=== PATIENT | female | born 1935 | race Caucasian/White ===

== ENCOUNTER 2016-05-18 08:18 | Day surgery (SDC) | payer BC ==
[2016-05-13 14:29] LABS: PARTIAL THROMBO TIME 32.5 SEC (22.5-37.2)
[2016-05-13 14:32] LABS: BUN (BLOOD UREA NITROGEN) 14 MG/DL (6-23); CALCIUM, SERUM 9.2 MG/DL (8.5-10.4); CHLORIDE, SERUM 106 MMOL/L (96-112); CO2 (CARBON DIOXIDE) 32 MMOL/L (24-34); CREATININE 0.76 MG/DL (0.55-1.02); GFR AFRICAN AMERICAN 86 ML/MIN (>=60); GFR NON AFRICAN AMERICAN 74 ML/MIN (>=60); GLUCOSE, SERUM 91 MG/DL (60-99); SODIUM, SERUM 143 MMOL/L (135-148)
[2016-05-13 14:33] LABS: POTASSIUM, SERUM 5.8 MMOL/L (3.5-5.3)
[2016-05-13 18:20] LABS: HEMATOCRIT 37.4 % (36.0-48.0); HEMOGLOBIN 12.3 g/dL (12.0-16.0)
--- NOTE | ~2016-05-18 | OP ---
Record Of Operation [facility] [address] [place]. 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 POSTOPERATIVE DIAGNOSIS: Basal cell carcinoma of the left nasal ala. PROCEDURE PERFORMED: Wide local excision of basal cell carcinoma with full-thickness skin graft. SURGEON: Sebastian Mcclellan M.D. ANESTHESIA: Monitored anesthesia care was utilized. FINDINGS: An 8-10 mm diameter basal cell carcinoma was excised from the left nasal ala. Margins negative per path. A full thickness skin graft about 1.5 x 1 cm was taken from the preauricular region on the left face to close. ESTIMATED BLOOD LOSS: 3 mL. COMPLICATIONS: No complications. INDICATIONS FOR PROCEDURE: An 80-year-old female with a biopsy-proven basal cell carcinoma, left nasal ala. Due to cosmetic considerations and need for pathology, we decided to this in the OR. She was described the risks and benefits of the procedure. She voiced understanding, signed the consent, and the consent was placed on the chart at the time of operation for the procedures described. PROCEDURE: The patient was wheeled to the OR suite and placed on the OR table in supine position. She had an IV in place and an oral airway was placed. She was placed on the OR table in a supine position with her head up and oxygen by nasal cannula was placed, and the oral airway. Propofol was given, and I would inject in the area of the basal carcinoma. I had measured this out, the area that I would excise would be between 8 and 10 mm excision area in the left nasal ala laterally at the crease, and I would measure an area of full- thickness skin graft and the left preauricular fold. These would be marked and I would inject total of 1 mL of 1% lidocaine with 1:100,000 epinephrine. It was injected in both areas and these were marked with pen. She was subsequently prepped and draped for the procedure, and I would scrub and gown, and I would use loupe magnification for the procedure. I would start in the area that I had marked with the pen. I would use a 15C blade and make a wide local excision around this, and I came deep to this, deep to the subcutaneous tissue at the level of the lower lateral cartilage. This was sent off for path. I would renuka at the 12 o'clock position. While this was done, I would make a circular 8-10 mm full thickness skin graft excision on the left preauricular fold. While I was waiting for the pathologist, I excised this side using a 15 blade and I came deep to the subcutaneous tissue. I would de-fat the full thickness graft and place this on a wet 4 x 4. I achieved meticulous hemostasis on both wound beds. While I was waiting for the Record Of Operation [place] [id number] [place]. [address] NAME: KARIE GREY : 35 STATUS : REG [facility] PAT#: [id number] AGE: 80 ADM/REG DATE : 05/18/16 MR#: [id number] REPORT SERV DATE: 05/18/16 DICTATED BY: SEBASTIAN MCCLELLAN DATE: 05/18/16 REPORT STATUS : Draft TRANSCRIBED BY: CONNOR DATE: 05/18/16 pathologist, I would close the preauricular area. I would take Burow's triangle superiorly and inferiorly and undermine the subcutaneous tissue at the area of the incision. I closed this using a running 5-0 Prolene suture, and I placed Mastisol and Steri-Strips over this closure. Pathologist came in the room and told me that the margins were negative, so we placed our full-thickness skin graft into the defect. I would close this circumferentially using 5-0 chromic gut sutures. I would place a Xeroform bolster over this with 5-0 Prolene and the procedure was complete. The face was cleaned and the patient was awoken. Estimated blood loss was minimal. There were no complications. She was subsequently awoken and stably transferred to recovery. RL/CONNOR Sebastian Mcclellan M.D. / [id number] CC: Ramon Richardson M.D.
[~2016-05-18 08:18] MED LIST: ADVIL PO; ASAB PO; AVAP150 PO; BENTYL10 PO; BL LECITHIN400 MG OR; COZ50 PO; KLOR-CON 1010 MEQ PO; L40 PO; LOP25 PO; MULTIPLE VIT PO; MULTIVITAMI1 PO; PRILO PO; PROBIOTIC; SUPER B COMPLEX; VICODINTAB PO; VITAMIN D400 UNI1 PO; VITAMIN E; ZOCOR20 PO; ZOCOR40 PO
== END 2016-05-18 16:08 | disposition home or self-care (01) ==
LOC: SDC 08:18
PROVIDERS: Otolaryngology
PROC: 0HR1XJ3 Replacement of Face Skin with Synthetic Substitute, Full Thickness, External Approach (ICD-10-PCS; 2016-05-18)
PROC: 0HB1XZX Excision of Face Skin, External Approach, Diagnostic (ICD-10-PCS; principal; 2016-05-18 09:15)
DX: C44.311 Basal cell carcinoma of skin of nose (principal); I10 Essential (primary) hypertension; K21.9 Gastro-esophageal reflux disease without esophagitis; E78.00 Pure hypercholesterolemia, unspecified; M19.90 Unspecified osteoarthritis, unspecified site; D64.9 Anemia, unspecified; Z90.49 Acquired absence of other specified parts of digestive tract; Z90.710 Acquired absence of both cervix and uterus; Z98.51 Tubal ligation status; Z90.89 Acquired absence of other organs; Z96.1 Presence of intraocular lens; Z98.890 Other specified postprocedural states
CPT/HCPCS: 36415; 80048; 84132; 85014; 85018; 85730; 88305; 88331; 93005; J0690; J3010